=== PATIENT | male | born 1980 | race African-American/Black ===

== ENCOUNTER 2021-08-15 22:40 | Emergency (ER) | payer MEDICAID, SELFPAY ==
--- NOTE | ~2021-08-15 | US_ITS ---
EXAMINATION: US scrotum doppler EXAM DATE: 08/15/2021 23:53 INDICATION: Left testicular pain. TECHNIQUE: Multiple grayscale and Doppler images of the testicles and scrotum were obtained bilateral ly. There is no prior study for comparison. FINDINGS: Right testicle measures 4.4 x 2.8 x 2.6 cm and is morphologically normal. Low resistance Doppler bijal w confirmed. The epididymis is unremarkable. There is no hydrocele or varicocele. Left testicle measures 4.2 x 3.2 x 3.3 cm and is mildly striated parenchyma compared to the more homo geneous right testicular parenchyma. Arterial Doppler flow is confirmed but appears to be high resist ance compared to contralateral side. Epididymis appears somewhat enlarged and edematous. Could be epi didymoorchitis but intermittent or partial torsion can mimic this. Small to moderate-sized left-sided hydrocele. IMPRESSION: Mildly heterogeneous striated left testicular parenchyma, could be epididymoorchitis, but given high resistance Doppler readings compared to contralateral side, partial or intermittent torsi on is also in the differential diagnosis. I discussed this case with emergency room Dr. Alcaraz at 08/16/2021 11:29 SCREEN WRITER. Reviewed, dictated and finalized at location A. EN WRITER IMPRESSION: Mildly heterogeneous striated left testicular parenchyma, could be epididymoorchitis, but given high resistance Doppler readings compared to contr alateral side, partial or intermittent torsion is also in the differential diag nosis. I discussed this case with emergency room Dr. Alcaraz at 08/16/2021 11:29 SCREEN WRITER.
[2021-08-15 22:41] VITALS: BP 135/100; PULSE 106; RESP 20; O2SAT 100
[2021-08-15 23:10] LABS: Hemoglobin 15.7 g/dL (14.0-18.0); Mean Corpuscular HGB Conc 35.7 g/dl (32-36); Mean Corpuscular Hemoglobin 32.3 pg (26-34); Mean Corpuscular Volume 90.5 fl (80-100); Mean Platelet Volume 9.1 fl (7.4-10.4); Platelet Count Result 229 k/mm3 (150-375); Red Blood Count 4.86 M/mm3 (4.6-6.20); White Blood Count 24.9 K/mm3 (4.5-10.0)
[2021-08-15 23:20] LABS: Alanine Aminotransferase 32 U/L (4-50); Albumin Level 4.7 g/dL (3.5-5.1); Alkaline Phosphatase 112 U/L (38-126); Anion Gap 11 mmol/L (8-16); Aspartate Amino Transferase 28 U/L (17-59); Bilirubin,Total 0.8 mg/dL (0.2-1.3); Blood Urea Nitrogen 17 mg/dL (9-20); Calcium 9.4 mg/dL (8.4-10.2); Carbon Dioxide 19 mmol/L (22-30); Chloride 100 mmol/L (98-107); Estimated CRCL calculation 90 ml/min; Estimated Glomerular Filt Rate > 60; Glucose 134 mg/dL (65-110); Potassium 3.7 mmol/L (3.4-5.0); Sodium 130 mmol/L (137-145)
[2021-08-15] MEDS: MORPHINE SULFATE (*CRX) 4 MG/ML INJ IV PUSH (23:22)
[2021-08-15 23:29] LABS: Add Urine Microscopic? YES; Appearance Urine Cloudy (Clear); Bilirubin Urine 1+ (Negative); Blood Urine Negative (Negative); Color Urine Amber (Yellow); Glucose Urine UA Negative (Negative); Ketones Urine 1+ mg/dL (Negative); Leukocyte Esterase Ur Trace LEU/UL (Negative); Mucus Urine Heavy /lpf; Nitrate Urine Negative (Negative); Protein Urine 2+ mg/dL (Negative); Specific Grav Ur 1.049 (1.001-1.035); Squamous Epithelial Cell Urine Many /hpf (Few); WBC Urine 31-50 /hpf
[2021-08-15 23:34] LABS: Band Neutrophils Percent 11 % (0-6); Lymphocytes Absolute Manual 2.73 K/mm3 (1.1-4.5); Monocytes Absolute Manual 0.24 K/mm3 (0.1-0.90); Monocytes Percent Manual 1 % (3-9); Neutrophils Absolute Manual 21.91 K/mm3 (1.3-6.7); Neutrophils Percent Manual 77 % (46-73); Total Cells Counted 100
[2021-08-15 23:35] LABS: Platelet Estimate Adequate (Adequate)
[2021-08-15 23:40] LABS: Lactic Acid Reflex 1.1 mmol/L (0.7-2.1)
[2021-08-16] MEDS: cefTRIAXone 1 GM VIAL 0.5 GM IM (00:44)
[2021-08-16] MEDS: LIDOCAINE HCL 1% LOCAL INJ 20 ML VIAL 2.1 ML INFILTRATE (00:44)
[2021-08-16 00:50] VITALS: BP 153/103; PULSE 95; RESP 18; O2SAT 100
--- NOTE | 2021-08-16 01:10 | ED.MALEGU ---
HPI - Male Genitourinary General Stated complaint: r/o testicular torsion from [facility] Time Seen by Provider: 08/15/21 22:48 Source: patient History of Present Illness HPI Narrative: Patient presents with left testicular pain. Reports his pain is been gradual onset and started yesterday. Is getting progressively worse so he wanted to come and be evaluated. Is referred from another facility as there is no ultrasound availability. Patient ports he had similar symptoms approximately 1 year ago was diagnosed with infection . Reports symptoms got better with of course of IV antibiotics. He denies any concerns for STD or STIs denies any trauma to the area Related Data Home Medications Medication Instructions Recorded Confirmed No Home Medications 08/15/21 08/15/21 Allergies Allergy/AdvReac Type Severity Reaction Status Date / Time No Known Allergies Allergy Verified 08/15/21 23:21 Review of Systems Review of Systems: CONSTITUTIONAL: Denies fever, chills, or sweats. EYES: Denies visual changes, redness, or discharge. ENT: Denies rhinorrhea, congestion, sore throat, or otalgia. CARDIOVASCULAR: Denies chest pain, palpitations, or edema. RESPIRATORY: Denies cough or dyspnea. GASTROINTESTINAL: Denies abdominal pain, nausea, vomiting, or diarrhea. GENITOURINARY: Denies dysuria or hematuria. SKIN: Denies rash or itching. MUSCULOSKELETAL: Denies back pain, joint pain, or myalgia. NEUROLOGIC: Denies headache, numbness, dizziness, or weakness. PSYCHIATRIC: Denies anxiety or depression. All systems reviewed & are unremarkable except as noted in HPI and below PMFSH Social History Social History (Updated 08/16/21 @ 01:12 by Vicente Gleason MD) Smoking status: Current every day smoker Substance use type: marijuana Exam Narrative: GENERAL: Well-appearing, well-nourished, and in no acute distress. HEAD: Normocephalic, atraumatic. EYES: PERRLA and EOMI. ENT: Nares clear, no rhinorrhea or epistaxis. Mucous membranes moist. NECK: Supple. No masses. No JVD ABDOMEN: Soft, nontender, nondistended, normal active bowel sounds. 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 Patient cremasteric intact right testicle normal lie no masses or focal areas of tenderness left testicle appears swollen with firm mass sitting on top of the testicle there is diffuse tenderness on the mass there is normal lie of the testicles. There is no lymphadenopathy there is no ulcerations there is no urethral discharge EXTREMITIES: Normal range of motion. No edema. SKIN: Warm, dry, no rash. NEURO: No focal deficits. Alert and oriented x3. PSYCH: Normal mood and affect. Course Reevaluation(s) Reevaluation #1: Results and plan reviewed with patient patient is comfortable with outpatient plan. Date: 08/16/21 Time: 01:13 Vital Signs Vital signs: Vital Signs Pulse Rate 106 H 08/15/21 22:41 Respiratory Rate 20 08/15/21 22:41 Blood Pressure 135/100 H 08/15/21 22:41 Pulse Oximetry 100 08/15/21 22:41 Pulse Rate 95 08/16/21 00:50 Respiratory Rate 18 08/16/21 00:50 Blood Pressure 153/103 H 08/16/21 00:50 Pulse Oximetry 100 08/16/21 00:50 MDM - Male Genitourinary MDM Narrative Medical decision making narrative: H&P as above, vss, pt looks clinically well, exam tenderness to the epididymal area on the left testicle, labs with leukocytosis and infected urine, img concerning for epididymitis, additional labs/img considered, symptomatic relief available as needed, on reevaluation pt continues to looks clinically well. Suspect infectious epididymitis, dns torsion, sepsis, Tip's. plan to tx/monitor as op w/ pcm f/u findings/plan discussed with pt, pt agree/comfortable with plan, return precautions given. Given patient's recurrent epididymitis he was referred to urology as an outpatient. Lab Data Result diagrams: 08/15/21 23:02 08/15/21 23:02 Labs: Lab Results 08/15/21 08/15/21 08/15/21 Range/
== END 2021-08-16 01:47 | disposition home or self-care (01) ==
PROVIDERS: Emergency Provider Emergency Medicine
DX: N45.1 Epididymitis (principal); N43.3 Hydrocele, unspecified; F17.200 Nicotine dependence, unspecified, uncomplicated
CPT/HCPCS: 36415; 76870; 80053; 81001; 83605; 85025; 87077; 87086; 87088; 87186; 87491; 87591; 93976; 96372; 96374; 99284; J0696; J2270

== ENCOUNTER 2022-12-02 05:01 | Emergency (ER) | payer OTHER, SELFPAY ==
--- NOTE | ~2022-12-02 | US_ITS ---
Testicular ultrasound with doppler. Indication: Left testicular pain. Technique: Real-time sonography the scrotum was performed. Color flow Doppler and Doppler spectral an alysis were performed. Findings: The testes are homogeneous in echotexture bilaterally. There is no evidence of an intrates ticular mass. The right testis measures 4.1 x 2.3 x 3.3 cm and the left 3.4 x 2.0 x 3.3 cm. There is color-flow seen to both testes. Arterial and venous spectral waveforms are seen in both testes. There is no sonographic evidence of torsion. There is hypervascularity of the left testis and left epididy mis. Impression: Left epididymoorchitis. No evidence of torsion. Reviewed, dictated and finalized at [facility]. SE[employer] Impression: Left epididymoorchitis. No evidence of torsion.
[2022-12-02 05:04] VITALS: BP 141/86; PULSE 106; RESP 14; TEMP 37.2; O2SAT 96
--- NOTE | 2022-12-02 06:08 | ED.GENADULT ---
HPI - General Adult General Chief complaint: Urogenital-Male <Ike Infante MD - Last Filed: 12/03/22 03:43> Stated complaint: cyst <Ike Infante MD - Last Filed: 12/03/22 03:43> Time Seen by Provider: 12/02/22 05:22 <Ike Infante MD - Last Filed: 12/03/22 03:43> History of Present Illness HPI narrative: This is a 42-year-old male presenting ED with a chief complaint of a cyst on his left testicle. In reality it is just left testicular pain. Patient noticed approximately 1 day ago that his testicle was swollen and tender to the touch. The patient has had this happen in the past and was treated with antibiotics with complete resolution of his symptoms. Patient is not sexually active. He has no concern for STDs. He denies urinary symptoms. Denies fever, chills, nausea vomiting or abdominal pain. <Ike Infante MD - Last Filed: 12/03/22 03:43> Related Data Allergies/adverse reactions: Allergies Allergy/AdvReac Type Severity Reaction Status Date / Time No Known Allergies Allergy Verified 08/15/21 23:21 <Ike Infante MD - Last Filed: 12/03/22 03:43> [facility] Social History Social History: Social History Smoking status: Current every day smoker Substance use type: marijuana <Ike Infante MD - Last Filed: 12/03/22 03:43> Exam Narrative: APPEARANCE: No apparent distress. Head: atraumatic. EYES: EOMI, NOSE: Atraumatic NECK: Trachea midline RESPIRATORY: No increased rate of breathing CARDIOVASCULAR: RRR, ABDOMINAL: Non-distended MUSCULOSKELETAl: No obvious deformities NEURO: Alert. Moving 4/4 extremities SKIN:: Warm, dry. Normal color PSYCHIATRIC: Normal affect General exam revealed diffuse tenderness to the left testicle. It has a normal lie, cremaster reflex is intact. No overlying skin changes. <Ike Infante MD - Last Filed: 12/03/22 03:43> Course Reevaluation(s) Reevaluation #1: Patient laying down comfortable in bed, without any acute condition at this time. <Luis Miguel Rodriguez MD - Last Filed: 12/02/22 08:38> Date: 12/02/22 <Luis Miguel Rodriguez MD - Last Filed: 12/02/22 08:38> Time: 08:37 <Luis Miguel Rodriguez MD - Last Filed: 12/02/22 08:38> Vital Signs Vital signs: Vital Signs Temperature 98.9 F 12/02/22 05:04 Pulse Rate 106 H 12/02/22 05:04 Respiratory Rate 14 12/02/22 05:04 Blood Pressure 141/86 H 12/02/22 05:04 Pulse Oximetry 96 12/02/22 05:04 Temperature 98 F 12/02/22 08:45 Pulse Rate 75 12/02/22 08:45 Respiratory Rate 18 12/02/22 08:45 Blood Pressure 132/85 12/02/22 08:45 Pulse Oximetry 99 12/02/22 08:45 <Ike Infante MD - Last Filed: 12/03/22 03:43> Vital Signs Temperature 98.9 F 12/02/22 05:04 Pulse Rate 106 H 12/02/22 05:04 Respiratory Rate 14 12/02/22 05:04 Blood Pressure 141/86 H 12/02/22 05:04 Pulse Oximetry 96 12/02/22 05:04 Temperature 98 F 12/02/22 08:45 Pulse Rate 75 12/02/22 08:45 Respiratory Rate 18 12/02/22 08:45 Blood Pressure 132/85 12/02/22 08:45 Pulse Oximetry 99 12/02/22 08:45 <Luis Miguel Rodriguez MD - Last Filed: 12/02/22 08:38> Medical Decision Making MDM Narrative Medical decision making narrative: -Presentation: 42-year-old male presenting with left testicle pain. urinalysis and scrotal ultrasound have been ordered. Patient has been given Leadore for pain control. -DDX includes but is not limited to: Torsion, epididymitis, orchitis -Co-morbidities complicating care: history of orchitis -Social determinants of health: noncontributory -External Chart Review: none -Hx from independent Sources: none -Discussion of Management/Consultants: none -Independent interpretation of studies: Scrotal US: Showed epididymal orchitis. Dx tests considered but not ordered: -Procedures: -Interventions: Leadore -Shared decision ma
[2022-12-02] MEDS: HYDROcodone/acetaminophen (*CRX) 5-325 MG TABLET 1 TAB PO (06:13)
[2022-12-02 06:31] LABS: Appearance Urine Cloudy (Clear); Bacteria Urine None Seen /hpf; Bilirubin Urine Negative (Negative); Blood Urine Negative (Negative); Color Urine Yellow (Yellow); Glucose Urine UA Negative (Negative); Ketones Urine Trace mg/dL (Negative); Leukocyte Esterase Ur 2+ LEU/UL (Negative); Nitrate Urine Negative (Negative); Non Pathogenic Casts 0-2; Protein Urine Trace mg/dL (Negative); RBC Urine 0-2 /hpf (0-2); Specific Grav Ur 1.025 (1.001-1.035); Squamous Epithelial Cell Urine None seen /hpf (Few); WBC Urine 21-50 /hpf; pH Urine 7.5 (5.0-9.0)
[2022-12-02 06:45] LABS: Add Urine Microscopic? YES
[2022-12-02 06:49] VITALS: BP 121/74; PULSE 91; RESP 20; O2SAT 97
[2022-12-02 08:30] VITALS: O2SAT 95
[2022-12-02 08:31] VITALS: BP 132/85; O2SAT 99
[2022-12-02 08:45] VITALS: BP 132/85; PULSE 75; RESP 18; TEMP 36.6; O2SAT 99
== END 2022-12-02 08:47 | disposition home or self-care (01) ==
PROVIDERS: Emergency Medicine; Emergency Provider Emergency Medicine; PCP Emergency Medicine
DX: N45.3 Epididymo-orchitis (principal); N39.0 Urinary tract infection, site not specified; F17.200 Nicotine dependence, unspecified, uncomplicated
CPT/HCPCS: 76870; 81001; 87086; 93976; 99284; A9270